=== PATIENT | female | born 1975 | race Caucasian/White ===

== ENCOUNTER 2018-01-19 09:09 | Observation (INO) | payer OTHER ==
[2018-01-19] MEDS ORDERED: ONDANSETRON HCL INJ/PF 4 MG/2 ML SDV IV ONE ×3 (09:49→14:50)
[2018-01-19] MEDS ORDERED: KETOROLAC TROMETHAMINE INJ/PF 30 MG/1 ML SDV IV ONE (09:49)
[2018-01-19] MEDS ORDERED: NORMAL SALINE 1000 ML 1,000 ML IV ONE (09:49)
--- NOTE | 2018-01-19 09:50 | ER Document Report ---
ED Medical Screen (RME) - General Chief Complaint: Abdominal Pain Stated Complaint: ABDOMEN PAIN Time Seen by Provider: 01/19/18 09:46 TRAVEL OUTSIDE OF THE [place] IN LAST 30 DAYS: No - HPI Notes: 01/19/18 09:49 Patient is a 42-year-old female that presents to the emergency department for chief complaint of abdominal pain. Patient reports epigastric abdominal pain with nausea for the last few days. She was seen at her doctor yesterday and had blood work drawn. She was told to come to the emergency room for elevated WBC count and possible ultrasound. Patient has history of cholecystectomy. ROS: GENERAL: Denies fever of chills CV: Denies chest pain PHYSICAL EXAMINATION: GENERAL: Well-appearing, well-nourished and in no acute distress. HEAD: Atraumatic, normocephalic. EYES: Pupils equal round extraocular movements intact, conjunctiva are normal. ENT: Nares patent NECK: Normal range of motion LUNGS: No respiratory distress Musculoskeletal: Normal range of motion NEUROLOGICAL: Normal speech, normal gait. PSYCH: Normal mood, normal affect. MDM: Patient seen and examined for rapid initial assessment. Vital signs reviewed. A comprehensive ED assessment and evaluation of the patient, analysis of test results and completion of the medical decision making process will be conducted by additional ED providers. - Related Data Allergies/Adverse Reactions: erythromycin base Adverse Reaction (Verified 01/19/18 09:10) Past Medical History - Social History Chew tobacco use (# tins/day): No Frequency of alcohol use: None Drug Abuse: None - Past Medical History Cardiac Medical History: Reports: Hx Hypertension Renal/ Medical History: Denies: Hx Peritoneal Dialysis Past Surgical History: Reports: Hx Breast Surgery - augmentation, Hx Cholecystectomy, Hx Orthopedic Surgery - back Physical Exam - Vital signs Vitals: Temp Pulse Resp BP Pulse Ox 98.1 F 96 16 126/85 H 99 01/19/18 09:30 01/19/18 09:30 01/19/18 09:30 01/19/18 09:30 01/19/18 09:30 Course - Vital Signs Vital signs: Temp Pulse Resp BP Pulse Ox 98.1 F 96 16 126/85 H 99 01/19/18 09:30 01/19/18 09:30 01/19/18 09:30 01/19/18 09:30 01/19/18 09:30 Doctor's Discharge - Discharge Referrals: FOX POLANCO MD [Primary Care Provider] - Follow up as needed
[2018-01-19 10:41] LABS: ABSOLUTE BASOPHILS # (AUTO) 0.1 10^3/uL (0.0-0.2); ABSOLUTE EOSINOPHILS # (AUTO) 0.1 10^3/uL (0.0-0.6); ABSOLUTE LYMPHOCYTES (AUTO) 2.5 10^3/uL (0.5-4.7); ABSOLUTE MONOCYTES (AUTO) 0.4 10^3/uL (0.1-1.4); ABSOLUTE NEUT (AUTO) 8.9 10^3/uL (1.7-8.2); BASOPHILS % (AUTO) 0.7 % (0-2); EOSINOPHILS % (AUTO) 0.9 % (0-6); HEMATOCRIT 41.6 % (36.0-47.0); HEMOGLOBIN 14.4 g/dL (12.0-15.5); LYMPHOCYTES % (AUTO) 20.6 % (13-45); MEAN CORPUSCULAR HEMOGLOBIN 30.8 pg (27.0-33.4); MEAN CORPUSCULAR HGB CONC 34.5 g/dL (32.0-36.0); MEAN CORPUSCULAR VOLUME 90 fl (80-97); MONOCYTES % (AUTO) 3.5 % (3-13); PLATELET COUNT 289 10^3/uL (150-450); RED BLOOD COUNT 4.65 10^6/uL (3.72-5.28); RED CELL DISTRIBUTION WIDTH 13.3 % (11.5-14.0); SEGMENTED NEUTROPHILS % (AUTO) 74.3 % (42-78); TOTAL CELLS COUNTED % (AUTO) 100 %
[2018-01-19 10:59] LABS: APPEARANCE,URINE SLIGHTLY-CLOUDY; BILIRUBIN,URINE NEGATIVE (NEGATIVE); COLOR,URINE YELLOW; GLUCOSE, URINE NEGATIVE (NEGATIVE); KETONES,URINE NEGATIVE (NEGATIVE); LEUKOCYTE ESTERASE,URINE MODERATE (NEGATIVE); NITRITE,URINE NEGATIVE (NEGATIVE); PROTEIN,URINE NEGATIVE (NEGATIVE); URINE SPECIFIC GRAVITY 1.021; UROBILINOGEN,URINE NEGATIVE mg/dL (<2.0)
[2018-01-19 11:07] LABS: ALANINE AMINOTRANSFERASE 32 U/L (9-52); ALBUMIN 4.6 g/dL (3.5-5.0); ALKALINE PHOSPHATASE 67 U/L (38-126); ANION GAP 9 (5-19); ASPARTATE AMINO TRANSFERASE 34 U/L (14-36); BILIRUBIN,DIRECT 0.3 mg/dL (0.0-0.4); BILIRUBIN,TOTAL 0.4 mg/dL (0.2-1.3); BLOOD UREA NITROGEN 14 mg/dL (7-20); CALCIUM 9.3 mg/dL (8.4-10.2); CARBON DIOXIDE 24 mmol/L (22-30); CHLORIDE 108 mmol/L (98-107); GLUCOSE 91 mg/dL (75-110); LIPASE 89.8 U/L (23-300); POTASSIUM 4.5 mmol/L (3.6-5.0); SODIUM 140.6 mmol/L (137-145); TOTAL PROTEIN 8.6 g/dL (6.3-8.2)
--- NOTE | 2018-01-19 11:24 | ER Document Report ---
ED GI/ - General Chief Complaint: Abdominal Pain Stated Complaint: ABDOMEN PAIN Time Seen by Provider: 01/19/18 09:46 Notes: 42-year-old female to the emergency department chief complaint of abdominal pain for 1 day. Was seen at urgent care yesterday. Had labs performed slightly elevated WBC count was noted. Continue to have abdominal pain today but slightly better. Advised to come to the emergency department for repeat evaluation to rule out appendicitis. Patient denies any fever but does have some nausea but no vomiting. No change in stool. No vaginal complaints. TRAVEL OUTSIDE OF THE [place] IN LAST 30 DAYS: No - HPI Patient complains to provider of: Abdominal pain Timing/Duration: Gradual, Persistent, Waxing and waning Quality of pain: Achy - Related Data Allergies/Adverse Reactions: erythromycin base Adverse Reaction (Verified 01/19/18 09:10) Past Medical History - General Information source: Patient - Social History Smoking Status: Never Smoker Chew tobacco use (# tins/day): No Frequency of alcohol use: None Drug Abuse: None Lives with: Spouse/Significant other Family History: Reviewed & Not Pertinent Patient has suicidal ideation: No Patient has homicidal ideation: No - Past Medical History Cardiac Medical History: Reports: Hx Hypertension Renal/ Medical History: Denies: Hx Peritoneal Dialysis Past Surgical History: Reports: Hx Breast Surgery - augmentation, Hx Cholecystectomy, Hx Orthopedic Surgery - back Review of Systems - Review of Systems Notes: Constitutional: denies: Chills, Diaphoresis, Fever, Malaise, Weakness EENT: denies: Eye discharge, Blurred vision, Tearing, Double vision, Nose congestion, Nose discharge, Throat swelling, Mouth pain Cardiovascular: denies: Palpitations, Heart racing, Orthopnea, Dyspnea, Chest pain Respiratory: denies: Cough, Hurts to breathe, Wheezing, Shortness of breath Gastrointestinal: Complaining of right lower quadrant abdominal pain with nausea. No vomiting. No change in stool patterns. Genitourinary: denies: Burning, Dysuria, Discharge, Frequency, Flank pain, Hematuria Musculoskeletal: denies: Joint pain, Joint swelling, Muscle pain, Muscle stiffness, back pain Hematologic/Lymphatic: denies: Anemia, Easy bleeding, Easy bruising, Blood clots Neurological/Psychological: denies: Confusion, Dementia, Depression, Loss of consciousness Skin: No lesions, no masses, no skin breakdown, no abscesses Physical Exam - Vital signs Vitals: Temp Pulse Resp BP Pulse Ox 98.1 F 96 16 126/85 H 99 01/19/18 09:30 01/19/18 09:30 01/19/18 09:30 01/19/18 09:30 01/19/18 09:30 Interpretation: Normal - General General appearance: Appears well, Alert - HEENT Head: Normocephalic, Atraumatic Eyes: Normal Pupils: PERRL - Respiratory Respiratory status: No respiratory distress Chest status: Nontender Breath sounds: Normal Chest palpation: Normal - Cardiovascular Rhythm: Regular Heart sounds: Normal auscultation Murmur: No - Abdominal Inspection: Normal Distension: No distension Bowel sounds: Normal Tenderness: Tender, McBurney's point, Guarding. No: Rebound Organomegaly: No organomegaly - Back Back: Normal, Nontender - Extremities General upper extremity: Normal inspection, Nontender, Normal color, Normal ROM , Normal temperature General lower extremity: Normal inspection, Nontender, Normal color, Normal ROM , Normal temperature, Normal weight bearing. No: Lucille's sign - Neurological Neuro grossly intact: Yes Cognition: Normal Orientation: AAOx4 Federica Coma Scale Eye Opening: Spontaneous Prole Coma Scale Verbal: Oriented Federica Coma Scale Motor: Obeys Commands Prole Coma Scale Total: 15 Speech: Normal Motor strength normal: LUE, RUE, LLE, RLE Sensory: Normal - Psychological Associated symptoms: Normal affect, Normal mood - Skin Skin Temperature: Warm Skin Moisture: Dry Skin Color: Normal Course - Re-evaluation Re-evalutation: 01/19/18 12:28 With mild elevated WBC count with right lower quadrant tenderness and a CT scan showing findings consistent with an early appendicitis according to radiology. Will start on Mefoxin. Consult surgeon for admit for appendectomy. 01/19/18 12:39 Laboratory 01/19/18 01/19/18 01/19/18 09:55 10:10 10:10 WBC 12.0 H RBC 4.65 Hgb 14.4 Hct 41.6 MCV 90 MCH 30.8 MCHC 34.5 RDW 13.3 Plt Count 289 Seg Neutrophils % 74.3 Lymphocytes % 20.6 Monocytes % 3.5 Eosinophils % 0.9 Basophils % 0.7 Absolute Neutrophils 8.9 H Absolute Lymphocytes 2.5 Absolute Monocytes 0.4 Absolute Eosinophils 0.1 Absolute Basophils 0.1 Sodium 140.6 Potassium 4.5 Chloride 108 H Carbon Dioxide 24 Anion Gap 9 BUN 14 Creatinine 0.78 Est GFR ( Amer) > 60 Est GFR (Non-Af Amer) > 60 Glucose 91 Calcium 9.3 Total Bilirubin 0.4 Direct Bilirubin 0.3 Neonat Total Bilirubin Not Reportable Neonat Direct Bilirubin Not Reportable Neonat Indirect Bili Not Reportable AST 34 ALT 32 Alkaline Phosphatase 67 Total Protein 8.6 H Albumin 4.6 Lipase 89.8 Urine Color YELLOW Urine Appearance SLIGHTLY-CLOUDY Urine pH 5.0 Ur Specific Hewitt 1.021 Urine Protein NEGATIVE Urine Glucose (UA) NEGATIVE Urine Ketones NEGATIVE Urine Blood MODERATE H Urine Nitrite NEGATIVE Urine Bilirubin NEGATIVE Urine Urobilinogen NEGATIVE Ur Leukocyte Esterase MODERATE H Urine WBC (Auto) 8 Urine RBC (Auto) 6 U Hyaline Cast (Auto) 1 Urine Bacteria (Auto) TRACE Squamous Epi Cells Auto 2 Urine Mucus (Auto) MOD Urine Ascorbic Acid NEGATIVE Abdomen/Pelvis CT 01/19/18 11:23 IMPRESSION: Enlarged appendix with minimal surrounding inflammatory change in the adjacent fat worrisome for acute appendicitis - Vital Signs Vital signs: Temp Pulse Resp BP Pulse Ox 98.1 F 96 16 126/85 H 99 01/19/18 09:30 01/19/18 09:30 01/19/18 09:30 01/19/18 09:30 01/19/18 09:30 - Laboratory Result Diagrams: 01/19/18 10:10 01/19/18 10:10 Laboratory results interpreted by me: 01/19/18 01/19/18 01/19/18 09:55 10:10 10:10 WBC 12.0 H Absolute Neutrophils 8.9 H Chloride 108 H Total Protein 8.6 H Urine Blood MODERATE H Ur Leukocyte Esterase MODERATE H Discharge - Discharge Clinical Impression: Acute appendicitis Qualifiers: Acute appendicitis type: unspecified acute appendicitis type Qualified Code(s) : K35.80 - Unspecified acute appendicitis Condition: Good Disposition: ADMITTED OBSERVATION Admitting Provider: Surgicalist - Bridget Unit Admitted: Surgical Floor
[2018-01-19] MEDS ORDERED: CEFOXITIN 1 GM/D5W RTU 1 GM/50 ML RTUPB IV ONE (12:23)
--- NOTE | 2018-01-19 12:29 | RADIOLOGY REPORT (SQ) ---
EXAM DESCRIPTION: CT ABD/PELVIS WITH IV ONLY COMPLETED DATE/TIME: 01/19/2018 12:07 pm REASON FOR STUDY: RLQ pain COMPARISON: None. TECHNIQUE: CT scan of the abdomen and pelvis performed using helical scanning technique with dynamic intravenous contrast injection. No oral contrast. Images reviewed with lung, soft tissue, and bone windows. Reconstructed coronal and sagittal MPR images reviewed. Delayed images for evaluation of the urinary system also acquired. All images stored on PACS. All CT scanners at this facility use dose modulation, iterative reconstruction, and/or weight based d osing when appropriate to reduce radiation dose to as low as reasonably achievable (ALARA). [facility]: Dose Right [facility]: CareDose [facility]: Dose Right [facility]: Teradose 4D [facility]: Mompery CONTRAST TYPE AND DOSE: contrast/concentration: Isovue 350.00 mg/ml; Total Contrast Delivered: 88.0 ml; Total Saline Delivered: 52.7 ml RENAL FUNCTION: Creatinine 0.8 RADIATION DOSE: CT Rad equipment meets quality standard of care and radiation dose reduction techniq ues were employed. CTDIvol: 8.4 - 11.9 mGy. DLP: 1090 mGy-cm.. LIMITATIONS: None. FINDINGS: On axial image 68 and coronal image 39, the appendix is enlarged, 11 to 12 mm in diameter with mild surrounding inflammatory change worrisome for acute appendicitis. This report was called t oniel Mitchell in the emergency room. No periappendiceal abscess or free fluid. LOWER CHEST: No significant findings. No nodules or infiltrates. Bilateral breast implants LIVER: Normal size. No masses. No dilated ducts. SPLEEN: Normal size. No focal lesions. PANCREAS: No masses. No significant calcifications. No adjacent inflammation or peripancreatic fluid collections. Pancreatic duct not dilated. GALLBLADDER: Surgically absent ADRENAL GLANDS: No significant masses or asymmetry. RIGHT KIDNEY AND URETER: No solid masses. No significant calcifications. No hydronephrosis or hyd roureter. LEFT KIDNEY AND URETER: No solid masses. No significant calcifications. No hydronephrosis or hydr oureter. AORTA AND VESSELS: No aneurysm. No dissection. Renal arteries, SMA, celiac without stenosis. RETROPERITONEUM: No retroperitoneal adenopathy, hemorrhage or masses. BOWEL AND PERITONEAL CAVITY: No masses or inflammatory changes. No free fluid or peritoneal masses. APPENDIX: As above PELVIS: No mass. No free fluid. Normal bladder. ABDOMINAL WALL: No masses. No hernias. BONES: No significant or acute findings. OTHER: No other significant finding. IMPRESSION: Enlarged appendix with minimal surrounding inflammatory change in the adjacent fat worri some for acute appendicitis TECHNICAL DOCUMENTATION: JOB ID: [id number] Quality ID # [id number]: Final reports with documentation of one or more dose reduction techniques (e.g., Au tomated exposure control, adjustment of the mA and/or kV according to patient size, use of iterative reconstruction technique) 2010 [employer]- All Rights Reserved Reading location - IP/workstation name: [facility]
[2018-01-19] MEDS ORDERED: FENTANYL CITRATE INJ/PF 100 MCG/2 ML AMPUL IV ONE (12:34)
[2018-01-19] MEDS ORDERED: BUPIVACAINE HCL 0.5 % INJ/PF 30 ML SDV ONE (14:57)
[2018-01-19] MEDS ORDERED: MIDAZOLAM 2 MG/2 ML INJ ONE (16:17)
[2018-01-19] MEDS ORDERED: DEXAMETHASONE SOD PHOSPHATE INJ 4 MG/1 ML VIAL ONE ×2 (16:17→22:48)
[2018-01-19] MEDS ORDERED: FENTANYL CITRATE INJ/PF 100 MCG/2 ML AMPUL ONE ×4 (16:17→18:39)
[2018-01-19] MEDS ORDERED: ONDANSETRON HCL INJ/PF 4 MG/2 ML SDV ONE (16:17)
[2018-01-19] MEDS ORDERED: PROPOFOL INJ 200 MG/20 ML VIAL IV ONE (16:19)
[2018-01-19] MEDS ORDERED: ACETAMINOPHEN 1,000 MG/100 ML RTUPB IV ONE (16:22)
--- NOTE | 2018-01-19 16:58 | PDOC H&P ---
History of Present Illness Admission Date/PCP: 01/19/18 13:54 ALEXX PAGAN Patient complains of: RLQ pains History of Present Illness: ANABEL FRANCOIS is a 42 year old female who noted abdominal pains past 3 days with nausea.Also noted some blood in the urine. A CT scan of abd/pelvis showed acute appendicitis. Past Medical History Cardiac Medical History: Reports: Hypertension Past Surgical History Past Surgical History: Reports: Cholecystectomy, Orthopedic Surgery - back Social History Lives with: Spouse/Significant other Smoking Status: Never Smoker - Advance Directive Resuscitation Status: Full Code Family History Family History: Reviewed & Not Pertinent Parental Family History Reviewed: Yes Children Family History Reviewed: No Sibling(s) Family History Reviewed.: No Medication/Allergy Home Medications: Lisinopril [Zestril] 10 mg PO DAILY 01/19/18 Norgestrel-Ethinyl Estradiol [Low-Ogestrel] 1 tab PO DAILY 01/19/18 Allergies/Adverse Reactions: erythromycin base Adverse Reaction (Verified 01/19/18 09:10) Review of Systems Constitutional: PRESENT: other - denies fever/chills Eyes: PRESENT: other - no visual/hearing changes Cardiovascular: PRESENT: other - no chest pains/cough Gastrointestinal: PRESENT: abdominal pain, nausea Genitourinary: PRESENT: hematuria, other - no dysuria Neurological: PRESENT: other - no seizures Hematologic/Lymphatic: PRESENT: other - no easy bruising Physical Exam Vital Signs: Temp Pulse Resp BP Pulse Ox 98.1 F 96 16 126/85 H 99 01/19/18 09:30 01/19/18 09:30 01/19/18 09:30 01/19/18 09:30 01/19/18 09:30 Intake & Output 01/18/18 01/19/18 01/20/18 06:59 06:59 06:59 Intake Total 50 Balance 50 General appearance: PRESENT: mild distress Head exam: PRESENT: atraumatic Eye exam: PRESENT: conjunctiva pink Mouth exam: PRESENT: moist Neck exam: PRESENT: full ROM Respiratory exam: PRESENT: clear to auscultation jose Cardiovascular exam: PRESENT: RRR Pulses: PRESENT: normal radial pulses Vascular exam: PRESENT: normal capillary refill GI/Abdominal exam: PRESENT: soft, tenderness - RLQ Rectal exam: PRESENT: deferred Extremities exam: PRESENT: clubbing Musculoskeletal exam: PRESENT: ambulatory Neurological exam: PRESENT: alert, oriented to person, oriented to place, oriented to time, oriented to situation Psychiatric exam: PRESENT: appropriate affect Skin exam: PRESENT: normal color, warm Results Impressions: Abdomen/Pelvis CT 01/19/18 11:23 IMPRESSION: Enlarged appendix with minimal surrounding inflammatory change in the adjacent fat worrisome for acute appendicitis Assessment & Plan - Time Time Spent: 30 to 50 Minutes - Inpatient Certification Medical Necessity: Need For IV Fluids, Need for Pain Control, Need for IV Antibiotics, Need for Surgery - Plan Summary Plan Summary: NPO IV antibiotics For Lap Appendectomy
[2018-01-19] MEDS ORDERED: DEXMEDETOMIDINE INJ 80 MCG/20 ML VIAL IV ONE (16:59)
[2018-01-19] MEDS ORDERED: CEFAZOLIN INJ 1 GM VIAL ONE (17:00)
[2018-01-19] MEDS ORDERED: DIPHENHYDRAMINE HCL 50 MG/ML VIAL IV PRN (17:29)
[2018-01-19] MEDS ORDERED: MEPERIDINE HCL/PF INJ 25 MG/1 ML DISP.SYRIN IV PRN (17:29)
[2018-01-19] MEDS ORDERED: FENTANYL CITRATE INJ/PF 100 MCG/2 ML AMPUL IV PRN ×3 (17:29)
[2018-01-19] MEDS ORDERED: PROMETHAZINE HCL INJ 25 MG/1 ML VIAL IV PRN ×2 (17:29)
[2018-01-19] MEDS ORDERED: MORPHINE SULFATE 10 MG/ML INJ IV PRN ×2 (17:29→18:55)
[2018-01-19] MEDS: PROMETHAZINE HCL INJ 25 MG/1 ML VIAL ONE ×3 (18:28→19:00)
[2018-01-19] MEDS ORDERED: OXYCODONE-ACETAMINOPHEN 5-325 MG TABLET PO PRN (18:55)
[2018-01-19] MEDS ORDERED: NORMAL SALINE 1000 ML 1,000 ML IV PRN (18:55)
[2018-01-19] MEDS ORDERED: ONDANSETRON HCL INJ/PF 4 MG/2 ML SDV IV PRN (18:55)
[2018-01-19] MEDS: HYDROMORPHONE HCL INJ/PF 2 MG/ML AMPULE IV PRN (21:13)
[2018-01-19] MEDS ORDERED: CEFOXITIN 1 GM/D5W RTU 1 GM/50 ML RTUPB IV SCH (22:00)
[2018-01-19] MEDS ORDERED: NEOSTIGMINE METHYLSULFATE 10 MG/10 ML VIAL ONE (22:48)
[2018-01-19] MEDS ORDERED: SUCCINYLCHOLINE CHLORIDE INJ 200 MG/10 ML VIAL ONE (22:48)
[2018-01-19] MEDS ORDERED: KETOROLAC TROMETHAMINE 60 MG/2 ML SDV ONE (22:48)
[2018-01-19] MEDS ORDERED: METOCLOPRAMIDE HCL INJ/PF 10 MG/2 ML SDV ONE (22:48)
[2018-01-19] MEDS ORDERED: GLYCOPYRROLATE 1 MG/5 ML SYRINGE ONE (22:48)
[2018-01-19] MEDS ORDERED: ROCURONIUM BROMIDE INJ 50 MG/5 ML VIAL IV ONE (22:48)
[2018-01-20] MEDS: HYDROMORPHONE HCL INJ/PF 2 MG/ML AMPULE IV PRN ×3 (00:31→05:29)
[2018-01-20 05:17] LABS: ABSOLUTE LYMPHOCYTES (AUTO) 0.8 10^3/uL (0.5-4.7); ABSOLUTE MONOCYTES (AUTO) 0.2 10^3/uL (0.1-1.4); ABSOLUTE NEUT (AUTO) 12.7 10^3/uL (1.7-8.2); BASOPHILS % (AUTO) 0.1 % (0-2); HEMATOCRIT 37.7 % (36.0-47.0); HEMOGLOBIN 13.1 g/dL (12.0-15.5); LYMPHOCYTES % (AUTO) 5.9 % (13-45); MEAN CORPUSCULAR HEMOGLOBIN 30.9 pg (27.0-33.4); MEAN CORPUSCULAR HGB CONC 34.8 g/dL (32.0-36.0); MEAN CORPUSCULAR VOLUME 89 fl (80-97); MONOCYTES % (AUTO) 1.2 % (3-13); PLATELET COUNT 252 10^3/uL (150-450); RED BLOOD COUNT 4.25 10^6/uL (3.72-5.28); RED CELL DISTRIBUTION WIDTH 13.1 % (11.5-14.0); SEGMENTED NEUTROPHILS % (AUTO) 92.8 % (42-78); TOTAL CELLS COUNTED % (AUTO) 100 %; WHITE BLOOD COUNT 13.7 10^3/uL (4.0-10.5)
[2018-01-20 05:35] LABS: ANION GAP 10 (5-19); BLOOD UREA NITROGEN 9 mg/dL (7-20); CARBON DIOXIDE 19 mmol/L (22-30); CHLORIDE 110 mmol/L (98-107); GLUCOSE 147 mg/dL (75-110); POTASSIUM 4.6 mmol/L (3.6-5.0); SODIUM 139.4 mmol/L (137-145)
--- NOTE | 2018-01-20 06:15 | OPERATIVE REPORT E ---
Operative Report NAME: ANABEL FRANCOIS : 1975 AGE: 42Y DATE OF SURGERY: 01/19/2018 ROOM: 531 PREOPERATIVE DIAGNOSIS: Acute appendicitis. POSTOPERATIVE DIAGNOSIS: Acute appendicitis. PROCEDURE: Laparoscopic appendectomy. SURGEON: JOSE GRIFFITHS M.D. ANESTHESIA: General. INDICATIONS: This is a 42-year-old female with abdominal pains for the past couple of days. She went to ED where a CT scan of the abdomen and pelvis revealed enlarged appendix with minimal inflammatory change compatible with acute appendicitis. She is markedly tender in the right lower quadrant. DESCRIPTION OF PROCEDURE: After adequate general anesthesia, the patient was placed in supine position and the abdomen prepped and draped in the usual sterile fashion. Appropriate timeout was then called. Next, an infraumbilical incision was made and fascia divided and Pranay trocar inserted and pressure CO2 given to the trocar and set at a pressure of 15 mmHg. Camera was then inserted and 2 other trocars were placed, a 5 mm in the suprapubic and a 12 mm in the left lower quadrant. The appendix was then divided and noted to be inflamed. It was then lifted up with a grasper and mesoappendix divided with the use of Harmonic kenia. The base of the appendix was then identified and cleared. It was noted to be free of any inflammation. Next, a loop PDS was then passed through the base of the appendix and ligated and another Vicryl loop was placed around the same area. The appendix was subsequently divided with the Harmonic kenia just above the ligatures. The appendix was placed in an Endobag and pulled out through the umbilical port. Trocars were put back and cecum and appendiceal area re- inspected. There was some bleeding noted there in what appears to be the cystic artery or a branch of it and this was then clipped. This was irrigated copiously and no subsequent active bleeding noted. A 15 croatian drain was then brought out through the suprapubic port and laid around the area of the appendix site. The omentum was pulled over to the appendectomy area. All the trocars were then removed and CO2 allowed to come out of the trocar sites. The infraumbilical fascial defect was then closed with a figure of eight suture using 0 Vicryl. All the skin incisions were closed with subcuticular 4-0 Vicryl undyed. Marcaine was injected along the skin and in the fascial areas. Sterile dressing was placed over the operative sites. Needle, instrument, and sponge count were all correct. Estimated blood loss was about 30 mL. Patient was then brought to recovery in satisfactory condition. DICTATING PHYSICIAN: JOSE GRIFFITHS M.D. [id number] PHY#: [id number] ID: [id number] JOB#: [id number] ACCT: [id number] cc:JOSE GRIFFITHS M.D. > MTDD
[2018-01-20 09:52] VITALS: BP 111/67
--- NOTE | 2018-01-20 10:53 | PDOC DISCHARGE SUMMARY ---
General - Admit/Disc Date/PCP Admission Date/Primary Care Provider: 01/19/18 13:54 ALEXX PAGAN Discharge Date: 01/20/18 - Discharge Diagnosis (1) Acute appendicitis Is this a current diagnosis for this admission?: Yes - Additional Information Resuscitation Status: Full Code Discharge Diet: As Tolerated Discharge Activity: No Lifting Over 10 Pounds Home Medications: Lisinopril [Zestril] 10 mg PO DAILY 01/19/18 Norgestrel-Ethinyl Estradiol [Low-Ogestrel] 1 tab PO DAILY 01/19/18 History of Present Illness History of Present Illness: ANABEL FRANCOIS is a 42 year old female admitted to the hospital with right lower quadrant pain and concern for acute appendicitis. The patient was taken to the operating room for definitive surgical therapy. The patient tolerated the procedure well and was taken to the floor in stable condition. Hospital Course Hospital Course: Patient was taken to the floor in stable condition. The patient did well from surgery. She was afebrile, ambulating, and tolerating a diet. By 01/20/2018 the patient was medically fit for discharge. Discussion with the patient was held regarding discharge and evacuation planning. The patient has an evacuation plan, and is requesting discharge so that this plan may be executed. On postoperative lab work, a leukocytosis was still present. Due to this, the patient will be sent home with a prescription for doxycycline 100 mg p.o. twice daily 7 days. I have discussed the signs and symptoms of developing postoperative pelvic abscess. Patient is to present to the nearest emergency department if the symptoms occur. I will discharge the patient into the care of her for evacuation today. Physical Exam Vital Signs: Temp Pulse Resp BP Pulse Ox 98.4 F 74 18 111/67 100 01/20/18 07:34 01/20/18 07:34 01/20/18 07:34 01/20/18 07:34 01/20/18 07:34 Intake & Output 01/19/18 01/20/18 01/21/18 06:59 06:59 06:59 Intake Total 3990 Output Total 1110 Balance 2880 Results Laboratory Results: 01/20/18 04:55 01/20/18 04:55 01/20/18 01/20/18 04:55 04:55 WBC 13.7 H RBC 4.25 Hgb 13.1 Hct 37.7 MCV 89 MCH 30.9 MCHC 34.8 RDW 13.1 Plt Count 252 Seg Neutrophils % 92.8 H Lymphocytes % 5.9 L Monocytes % 1.2 L Eosinophils % 0.0 Basophils % 0.1 Absolute Neutrophils 12.7 H Absolute Lymphocytes 0.8 Absolute Monocytes 0.2 Absolute Eosinophils 0.0 Absolute Basophils 0.0 Sodium 139.4 Potassium 4.6 Chloride 110 H Carbon Dioxide 19 L Anion Gap 10 BUN 9 Creatinine 0.66 Est GFR ( Amer) > 60 Est GFR (Non-Af Amer) > 60 Glucose 147 H Calcium 9.0 Impressions: Abdomen/Pelvis CT 01/19/18 11:23 IMPRESSION: Enlarged appendix with minimal surrounding inflammatory change in the adjacent fat worrisome for acute appendicitis Qualifiers - * PATIENT BEING DISCHARGED WITH ANY OF THE FOLLOWING DIAGNOSIS: No Plan Discharge Plan: Discharge home. Diet as tolerated. Activity: No lifting >10 pounds 2 weeks. Follow-up with [place] [facility] in 1-2 weeks. Okay to shower. No tub baths 2 weeks. [place] 5/325 mg p.o. every 6 hours as needed for pain. Doxycycline 100 mg p.o. twice daily 7 days. Time Spent: Less than 30 Minutes
== END 2018-01-20 10:27 | disposition home or self-care (01) ==
LOC: ER 09:09 → EH 13:54 → 5 19:31
PROVIDERS: ATTEND Surgery
PROC: 0DTJ4ZZ Resection of Appendix, Percutaneous Endoscopic Approach (ICD-10-PCS; principal; 2018-01-19 16:15)
DX: K35.3 Acute appendicitis with localized peritonitis (principal); I10 Essential (primary) hypertension; D72.829 Elevated white blood cell count, unspecified; R31.9 Hematuria, unspecified; Z90.49 Acquired absence of other specified parts of digestive tract; Z79.899 Other long term (current) drug therapy
CPT/HCPCS: 96376; 99284; 96361; 96375; 96365; 36415 ×2; 83690; 85025 ×2; 81025; 80048; 80053; 81001; 74177; 44970; J2250; J3490 ×4; J0690; J1100; J1885 ×2; J3010; J0694 ×2; J2765; J1170 ×2; J2550; J0330; J2405; J7030; J2704; J0131; 88304